=== PATIENT | female | born 1995 | race Two or more races ===

== ENCOUNTER 2024-08-31 13:42 | Outpatient (CLI) | payer BC, SELFPAY ==
[2024-08-31 19:01] LABS: Bacterial Vaginosis* Negative (Negative); Candida glab/krus NOT DETECTED (No Detected); Candida species DETECTED (No Detected); Trichomonas vaginalis NOT DETECTED (No Detected)
[2024-08-31 19:32] LABS: Chlamydia DNA Amplified* NOT DETECTED (No Detected); GC DNA Amplified* NOT DETECTED (No Detected)
== END 2024-08-31 13:43 | disposition home or self-care (01) ==
PROVIDERS: Visit Provider Midwife
DX: N89.8 Other specified noninflammatory disorders of vagina (principal)
CPT/HCPCS: 81513; 87109; 87481; 87491; 87591; 87661

== ENCOUNTER 2024-09-15 15:22 | Outpatient (CLI) | payer BC, SELFPAY ==
[2024-09-18 17:09] LABS: HPV Source Cervical; HPV, High Risk by TMA Not Detected
== END 2024-09-15 15:23 | disposition home or self-care (01) ==
PROVIDERS: Visit Provider Midwife
DX: Z12.4 Encounter for screening for malignant neoplasm of cervix (principal)
CPT/HCPCS: 87624; 87625; 88141; 88142

== ENCOUNTER 2025-01-25 14:05 | Outpatient (CLI) | payer BC, SELFPAY ==
[2025-01-25 22:55] LABS: Bacterial Vaginosis* POSITIVE (Negative); Candida glab/krus NOT DETECTED (No Detected)
== END 2025-01-25 14:06 | disposition home or self-care (01) ==
LOC: NFLDREF 15:49
PROVIDERS: Visit Provider Midwife
DX: N89.8 Other specified noninflammatory disorders of vagina (principal)
CPT/HCPCS: 81513; 87481; 87661

== ENCOUNTER 2025-03-11 13:33 | Outpatient (CLI) | payer BC, SELFPAY ==
--- NOTE | 2025-03-11 13:45 | CRLHL7_ITS ---
For Patients: As a result of the Century Cures Act, medical imaging exams and procedure reports are released immediately into your electronic medical record. You may view this report before your referring provider. If you have questions, please contact your health care provider. CLINICAL HISTORY: Pelvic pain and distention COMPARISON: None. TECHNIQUE: 2D ballesteros-scale ultrasound. In addition, color Doppler and spectral Doppler analysis was performed of the pelvis using a transvaginal approach. Transvaginal imaging performed to better visualize the endometrial stripe and ovaries. FINDINGS: On transvaginal imaging, the myometrium has a normal uniform echotexture. Uterus measures 8.6 x 4.6 x 5.8 cm. The endometrial lining appears normal and measures 2.8 mm in thickness. The right ovary measures 3.5 x 2.6 x 2.2 cm in size and the right ovary measures 4.1 x 2.6 x 2.6 cm. The ovaries demonstrate normal arterial and venous blood flow on color Doppler and spectral Doppler analysis. Mild right hydrosalpinx may be present. Mild right pelvic free fluid. IMPRESSION: Mild right hydrosalpinx may be present with associated free fluid. No torsion. Dictated by Cedrick Roland MD @ 03/11/2025 3:40:59 PM (Electronically Signed)
== END 2025-03-11 13:34 | disposition home or self-care (01) ==
LOC: US 13:33
PROVIDERS: Visit Provider Registered Nurse
DX: R10.2 Pelvic and perineal pain (principal)
CPT/HCPCS: 76830; 76856; 81513; 87086; 87109; 87481; 87661; 93976; T1013

== ENCOUNTER 2025-04-13 11:13 | Outpatient (CLI) | payer BC, SELFPAY ==
[2025-04-13 16:04] LABS: Bacterial Vaginosis* Negative (Negative); Candida glab/krus NOT DETECTED (No Detected)
[2025-04-13 16:35] LABS: Chlamydia DNA Amplified* NOT DETECTED (No Detected); GC DNA Amplified* NOT DETECTED (No Detected)
== END 2025-04-13 11:14 | disposition home or self-care (01) ==
PROVIDERS: Visit Provider Registered Nurse
DX: N89.8 Other specified noninflammatory disorders of vagina (principal); R10.20 Pelvic and perineal pain unspecified side; N92.6 Irregular menstruation, unspecified
CPT/HCPCS: 81513; 87086; 87109; 87481; 87491; 87591; 87661

== ENCOUNTER 2025-06-01 09:20 | Outpatient (CLI) | payer BC, SELFPAY ==
--- NOTE | 2025-06-01 09:15 | CRLHL7_ITS ---
For Patients: As a result of the Century Cures Act, medical imaging exams and procedure reports are released immediately into your electronic medical record. You may view this report before your referring provider. If you have questions, please contact your health care provider. INDICATION: Chronic salpingitis COMPARISON: 03/11/2025 TECHNIQUE: 2D ballesteros-scale and color Doppler images were acquired of the pelvis using a transabdominal and transvaginal approach. Transvaginal imaging performed to better visualize the endometrial stripe and ovaries. FINDINGS: Sonographic images demonstrate a normal size and smooth outer contour of the uterus. Uterus measures 7.2 cm in length by 4.8 cm in AP diameter by 6.4 cm in transverse dimension. The myometrium has a normal uniform echotexture. The endometrial lining appears normal and measures 2.4 mm in composite thickness. The right ovary measures 3.2 x 2.6 x 2.8 cm in size and the left ovary measures 4.1 x 2.9 x 3.1 cm. The ovaries demonstrate normal arterial and venous blood flow on color Doppler analysis. There are no suspicious fluid collections within the cul-de-sac. Simple left ovarian cyst measures 2.3 cm. IMPRESSION: Incidental small left ovarian cyst. No adnexal mass or pelvic free fluid. No hydrosalpinx. Dictated by Cedrick Roland MD @ 06/01/2025 11:04:43 AM (Electronically Signed)
== END 2025-06-01 09:21 | disposition home or self-care (01) ==
LOC: US 09:21
PROVIDERS: Visit Provider Obstetrics & Gynecology
DX: N70.11 Chronic salpingitis (principal); N83.292 Other ovarian cyst, left side
CPT/HCPCS: 76830; 76856; T1013